=== PATIENT | female | born 1960 | race Caucasian/White ===

== ENCOUNTER → 2021-05-10 | Day surgery (SDC) | payer OTHER ==
[~2021-05-10] MED LIST: LIDOCAINE HCL 2% LOCAL INJ 5 ML SDV VIAL INJ ONE; OFLOXACIN 0.3% (OTIC SOL) 5 ML BTL ONE; ONDANSETRON HCL INJ 2MG/ML 2ML 2 MG/ML VIAL ONE; POVIDONE IODINE 0.05% 0.05 % ML PO ONE; PROPOFOL IV EMULSION 10 MG/ML 20 ML VIAL ONE; SEVOFLURANE INHAL SOLN 250 ML PEN BTL ONE
[2021-05-10 08:50] VITALS: BP 149/88
== END | disposition home or self-care (01) ==
LOC: OR 08:32
PROVIDERS: ATTEND Otolaryngology Otolaryngology/Facial Plastic Surgery
DX: H66.93 Otitis media, unspecified, bilateral (principal); H74.41 Polyp of right middle ear; H90.3 Sensorineural hearing loss, bilateral
CPT/HCPCS: 93005; J2001; J2405